=== PATIENT | male | born 1980 | race Caucasian/White ===

== ENCOUNTER 2018-04-01 14:36 | Inpatient (IN) | payer MEDICAID, OTHER ==
[~2018-04-01] VITALS: Ht 185.4 cm; Wt 74.0 kg
[2018-04-01] MEDS ORDERED: normal saline 1000ML IV soln IVB ONE (17:05)
[2018-04-01] MEDS ORDERED: vancomycin/NS 1 GM ADD-VANTAGE 250 ML IV ONE (17:05)
[2018-04-01 17:37] LABS: BASOPHILS % (AUTO) 0.4 % (0-1); EOSINOPHILS # (AUTO) 0.1 X10'3 (0-0.9); HEMATOCRIT 35.9 % (42.0-52.0); HEMOGLOBIN 12.8 g/dl (14.0-17.9); LYMPHOCYTES # (AUTO) 0.7 X10'3 (1.1-4.8); LYMPHOCYTES % (AUTO) 6.3 % (21-51); MEAN CORPUSCULAR HEMOGLOBIN 32.7 PG (27.0-31.0); MEAN CORPUSCULAR HGB CONC 35.7 % (33.0-36.5); MEAN CORPUSCULAR VOLUME 91.8 FL (78-98); MEAN PLATELET VOLUME 6.7 FL (7.4-10.4); MONOCYTES # (AUTO) 0.8 X10'3 (0-0.9); MONOCYTES % (AUTO) 7.2 % (2-12); NEUTROPHILS # (AUTO) 9.6 X10'3 (1.8-7.7); NEUTROPHILS % (AUTO) 85.1 % (42-75); PLATELET COUNT 318 X10'3 (140-440); RED BLOOD COUNT 3.91 X10'6 (4.70-6.10); RED CELL DISTRIBUTION WIDTH 13.3 % (11.5-14.5); WHITE BLOOD COUNT 11.2 X10'3 (4.5-11.0)
[2018-04-01 17:47] LABS: INR 0.9 INR; PARTIAL THROMBOPLASTIN TIME 28 SECONDS (22-32); PROTHROMBIN TIME 9.7 SECONDS (9.0-12.0)
[2018-04-01 17:55] LABS: ALANINE AMINOTRANSFERASE 26 U/L (12-78); ALBUMIN 3.6 G/DL (3.4-5.0); ALBUMIN/GLOBULIN RATIO 1.2 (1.1-1.5); ALKALINE PHOSPHATASE 95 IU/L (46-116); ANION GAP 9 (8-16); ASPARTATE AMINO TRANSFERASE 34 U/L (10-37); BILIRUBIN,TOTAL 1.2 MG/DL (0.1-1.0); BLOOD UREA NITROGEN 15 MG/DL (7-18); BUN/CREATININE RATIO 18.3 (5.4-32.0); CALCIUM 8.8 MG/DL (8.5-10.1); CHLORIDE 102 MMOL/L (99-107); CREATININE 0.82 MG/DL (0.60-1.10); GLUCOSE 99 MG/DL (70-104); MAGNESIUM 2.1 MG/DL (1.5-2.4); POTASSIUM 3.7 MMOL/L (3.5-5.1); SODIUM 138 MMOL/L (135-145); TOTAL CARBON DIOXIDE 26.9 MMOL/L (24-32); TOTAL PROTEIN 6.7 G/DL (6.4-8.2); eGFR > 90 ML/MIN
[2018-04-01 19:37] LABS: CLARITY,URINE CLEAR (Clear); COLOR,URINE YELLOW (Yellow); GLUCOSE, URINE NEGATIVE (Neg); KETONES,URINE NEGATIVE (Neg); LEUKOCYTE ESTERASE ,URINE NEGATIVE (Neg); NITRITES, URINE NEGATIVE (Neg); OCCULT BLOOD,URINE NEGATIVE (Neg); PH,URINE 5.5 (4.8-8.0); PROTEIN,URINE NEGATIVE (Neg); UROBILINOGEN,URINE 0.2 E.U/dL (0.2-1.0)
[2018-04-01 19:47] LABS: UA COLLECTION TYPE NON-SPECIFIED
[2018-04-01] MEDS ORDERED: BUPR200T2 PO (20:52)
[2018-04-01] MEDS ORDERED: acetaminophen 325mg tablet PO PRN (21:20)
[2018-04-01] MEDS ORDERED: ondansetron/PF 4mg/2ml inj IV PRN (21:20)
[2018-04-01] MEDS ORDERED: mag hydrox/Alum hydrox/simeth 30ml oral suspension PO PRN (21:20)
[2018-04-01] MEDS ORDERED: magnesium hydroxide 30ml (MOM) UD suspension PO PRN (21:20)
[2018-04-01] MEDS ORDERED: potassium Cl 20 mEq SR tablet PO PRN ×2 (21:20)
[2018-04-01] MEDS ORDERED: potassium Cl 40MEQ/NS 500ml 500 ML IV PRN ×2 (21:20)
[2018-04-01] MEDS ORDERED: magnesium 1gm/100ml D5W IVPB 100 ML IV PRN (21:20)
[2018-04-01] MEDS ORDERED: morphine 4 MG/ML inj SYRINge IV PRN ×2 (21:20)
[2018-04-01] MEDS ORDERED: magnesium 4gm in 100ml NS 100 ML IV PRN (21:20)
[2018-04-01] MEDS ORDERED: levoFLOXACIN-Levaquin 750MG/D5 150 ML IV ONE (21:20)
[2018-04-01 22:45] VITALS: BP 136/82
[2018-04-01] MEDS: normal saline 1000ml 1,000 ML IV SCH (22:55)
[2018-04-01] MEDS: HYDROcodone/acetaminophen 5mg/325mg tablet PO PRN (23:29)
[2018-04-02] MEDS: vancomycin/NS 1 GM ADD-VANTAGE 250 ML IV SCH ×3 (01:09→16:55)
[2018-04-02] MEDS: HYDROcodone/acetaminophen 5mg/325mg tablet PO PRN ×3 (04:35→16:55)
[2018-04-02 06:00] VITALS: BP 133/77
[2018-04-02 07:09] LABS: BASOPHILS % (AUTO) 0.2 % (0-1); EOSINOPHILS # (AUTO) 0.2 X10'3 (0-0.9); EOSINOPHILS % (AUTO) 1.6 % (0-6); HEMATOCRIT 35.5 % (42.0-52.0); HEMOGLOBIN 12.5 g/dl (14.0-17.9); LYMPHOCYTES # (AUTO) 1.2 X10'3 (1.1-4.8); LYMPHOCYTES % (AUTO) 11.9 % (21-51); MEAN CORPUSCULAR HEMOGLOBIN 32.5 PG (27.0-31.0); MEAN CORPUSCULAR HGB CONC 35.1 % (33.0-36.5); MEAN CORPUSCULAR VOLUME 92.4 FL (78-98); MEAN PLATELET VOLUME 6.9 FL (7.4-10.4); MONOCYTES # (AUTO) 0.9 X10'3 (0-0.9); MONOCYTES % (AUTO) 9.4 % (2-12); NEUTROPHILS # (AUTO) 7.7 X10'3 (1.8-7.7); NEUTROPHILS % (AUTO) 76.9 % (42-75); PLATELET COUNT 287 X10'3 (140-440); RED BLOOD COUNT 3.84 X10'6 (4.70-6.10); RED CELL DISTRIBUTION WIDTH 13.4 % (11.5-14.5)
[2018-04-02] MEDS: normal saline 1000ml 1,000 ML IV SCH (07:18)
[2018-04-02] MEDS: K and/or MAG REPLACEMENT MC SCH (08:00)
[2018-04-02 08:03] LABS: ALANINE AMINOTRANSFERASE 24 U/L (12-78); ALKALINE PHOSPHATASE 78 IU/L (46-116); ANION GAP 9 (8-16); ASPARTATE AMINO TRANSFERASE 22 U/L (10-37); BILIRUBIN,TOTAL 0.7 MG/DL (0.1-1.0); BLOOD UREA NITROGEN 11 MG/DL (7-18); BUN/CREATININE RATIO 11.5 (5.4-32.0); CALCIUM 8.3 MG/DL (8.5-10.1); CHLORIDE 106 MMOL/L (99-107); CREATININE 0.96 MG/DL (0.60-1.10); GLUCOSE 88 MG/DL (70-104); POTASSIUM 3.7 MMOL/L (3.5-5.1); SODIUM 140 MMOL/L (135-145); TOTAL CARBON DIOXIDE 24.9 MMOL/L (24-32); TOTAL PROTEIN 5.9 G/DL (6.4-8.2); eGFR 88 ML/MIN
[2018-04-02 10:00] VITALS: BP 147/87
[2018-04-02] MEDS: levoFLOXACIN 750MG TABLET PO SCH (11:01)
[2018-04-02] MEDS ORDERED: iohexol 300mg/ml 100ml inj. ONE (11:57)
[2018-04-02] MEDS ORDERED: VANCOMYCIN LEVEL IV NR (16:30)
[2018-04-02 17:23] LABS: URINE AMPHETAMINE SCREEN POSITIVE (Neg); URINE BARBITUATE SCREEN NEGATIVE (Neg); URINE BENZODIAZEPINES SCREEN NEGATIVE (Neg); URINE CANNABINOID SCREEN NEGATIVE (Neg); URINE COCAINE SCREEN NEGATIVE (Neg); URINE METHADONE SCREEN NEGATIVE (Neg); URINE OPIATE SCREEN POSITIVE (Neg); URINE PHENCYCLIDINE SCREEN NEGATIVE (Neg)
[2018-04-02 18:00] VITALS: BP 145/89
[2018-04-02] MEDS: buPROPion SR 100mg tab PO SCH (19:30)
[2018-04-02] MEDS: lactobacillus rhamnosus 10,000 MMU CELLS/CAPSULE PO SCH (19:31)
[2018-04-02 22:00] VITALS: BP 120/69
[2018-04-02] MEDS: HYDROcodone/acetaminophen 10/325mg tab PO PRN (22:38)
[2018-04-03] MEDS: vancomycin/NS 1 GM ADD-VANTAGE 250 ML IV SCH (01:00)
[2018-04-03] MEDS: HYDROcodone/acetaminophen 10/325mg tab PO PRN ×3 (05:14→19:31)
[2018-04-03 05:54] LABS: BASOPHILS % (AUTO) 0.3 % (0-1); EOSINOPHILS # (AUTO) 0.1 X10'3 (0-0.9); EOSINOPHILS % (AUTO) 0.7 % (0-6); HEMATOCRIT 36.9 % (42.0-52.0); HEMOGLOBIN 12.9 g/dl (14.0-17.9); LYMPHOCYTES # (AUTO) 1.3 X10'3 (1.1-4.8); LYMPHOCYTES % (AUTO) 14.3 % (21-51); MEAN CORPUSCULAR HEMOGLOBIN 32.8 PG (27.0-31.0); MEAN CORPUSCULAR HGB CONC 34.8 % (33.0-36.5); MEAN CORPUSCULAR VOLUME 94.3 FL (78-98); MEAN PLATELET VOLUME 7.2 FL (7.4-10.4); MONOCYTES # (AUTO) 0.8 X10'3 (0-0.9); MONOCYTES % (AUTO) 9.3 % (2-12); NEUTROPHILS # (AUTO) 6.6 X10'3 (1.8-7.7); NEUTROPHILS % (AUTO) 75.4 % (42-75); PLATELET COUNT 285 X10'3 (140-440); RED BLOOD COUNT 3.92 X10'6 (4.70-6.10); RED CELL DISTRIBUTION WIDTH 12.8 % (11.5-14.5); WHITE BLOOD COUNT 8.8 X10'3 (4.5-11.0)
[2018-04-03 06:50] LABS: ALANINE AMINOTRANSFERASE 20 U/L (12-78); ALKALINE PHOSPHATASE 75 IU/L (46-116); ANION GAP 8 (8-16); ASPARTATE AMINO TRANSFERASE 21 U/L (10-37); BILIRUBIN,TOTAL 0.6 MG/DL (0.1-1.0); BLOOD UREA NITROGEN 8 MG/DL (7-18); BUN/CREATININE RATIO 8.3 (5.4-32.0); CALCIUM 8.5 MG/DL (8.5-10.1); CHLORIDE 103 MMOL/L (99-107); CREATININE 0.96 MG/DL (0.60-1.10); GLUCOSE 92 MG/DL (70-104); MAGNESIUM 1.9 MG/DL (1.5-2.4); POTASSIUM 3.5 MMOL/L (3.5-5.1); SODIUM 140 MMOL/L (135-145); eGFR 88 ML/MIN
[2018-04-03 07:12] VITALS: BP 131/71
[2018-04-03] MEDS: buPROPion SR 100mg tab PO SCH ×2 (07:34→19:31)
[2018-04-03] MEDS: lactobacillus rhamnosus 10,000 MMU CELLS/CAPSULE PO SCH ×2 (07:34→19:30)
[2018-04-03] MEDS: K and/or MAG REPLACEMENT MC SCH (08:00)
[2018-04-03 10:00] VITALS: BP 120/56
[2018-04-03] MEDS: vancomycin inj 1,250 MG in normal saline 250ml IV soln 250 ML IV SCH ×2 (10:31→17:22)
[2018-04-03] MEDS: levoFLOXACIN 750MG TABLET PO SCH (10:33)
[2018-04-03 18:00] VITALS: BP 129/73
[2018-04-03 22:00] VITALS: BP 140/79
[2018-04-04] MEDS: vancomycin inj 1,250 MG in normal saline 250ml IV soln 250 ML IV SCH ×3 (00:43→16:54)
[2018-04-04] MEDS: HYDROcodone/acetaminophen 10/325mg tab PO PRN ×5 (00:51→21:19)
[2018-04-04 06:21] LABS: BASOPHILS % (AUTO) 0.3 % (0-1); EOSINOPHILS # (AUTO) 0.1 X10'3 (0-0.9); EOSINOPHILS % (AUTO) 1.8 % (0-6); HEMATOCRIT 36.5 % (42.0-52.0); HEMOGLOBIN 12.7 g/dl (14.0-17.9); LYMPHOCYTES # (AUTO) 1.2 X10'3 (1.1-4.8); LYMPHOCYTES % (AUTO) 17.6 % (21-51); MEAN CORPUSCULAR HEMOGLOBIN 32.7 PG (27.0-31.0); MEAN CORPUSCULAR HGB CONC 34.9 % (33.0-36.5); MEAN CORPUSCULAR VOLUME 93.7 FL (78-98); MEAN PLATELET VOLUME 7.2 FL (7.4-10.4); MONOCYTES # (AUTO) 0.7 X10'3 (0-0.9); NEUTROPHILS # (AUTO) 4.9 X10'3 (1.8-7.7); NEUTROPHILS % (AUTO) 70.3 % (42-75); PLATELET COUNT 285 X10'3 (140-440); RED BLOOD COUNT 3.89 X10'6 (4.70-6.10); RED CELL DISTRIBUTION WIDTH 12.6 % (11.5-14.5); WHITE BLOOD COUNT 6.9 X10'3 (4.5-11.0)
[2018-04-04 06:33] LABS: ALANINE AMINOTRANSFERASE 24 U/L (12-78); ALBUMIN 2.8 G/DL (3.4-5.0); ALBUMIN/GLOBULIN RATIO 0.9 (1.1-1.5); ALKALINE PHOSPHATASE 63 IU/L (46-116); ANION GAP 7 (8-16); ASPARTATE AMINO TRANSFERASE 16 U/L (10-37); BILIRUBIN,TOTAL 0.4 MG/DL (0.1-1.0); BLOOD UREA NITROGEN 13 MG/DL (7-18); CALCIUM 8.6 MG/DL (8.5-10.1); CHLORIDE 103 MMOL/L (99-107); CREATININE 0.93 MG/DL (0.60-1.10); GLUCOSE 82 MG/DL (70-104); MAGNESIUM 2.1 MG/DL (1.5-2.4); POTASSIUM 3.6 MMOL/L (3.5-5.1); SODIUM 139 MMOL/L (135-145); TOTAL CARBON DIOXIDE 29.4 MMOL/L (24-32); eGFR > 90 ML/MIN
[2018-04-04 07:09] VITALS: BP 116/63
[2018-04-04] MEDS: K and/or MAG REPLACEMENT MC SCH (08:00)
[2018-04-04] MEDS: buPROPion SR 100mg tab PO SCH ×2 (08:20→19:04)
[2018-04-04] MEDS: lactobacillus rhamnosus 10,000 MMU CELLS/CAPSULE PO SCH ×2 (08:20→19:04)
[2018-04-04] MEDS ORDERED: VANCOMYCIN LEVEL IV ONE (08:30)
[2018-04-04 11:05] VITALS: BP 121/68
[2018-04-04] MEDS: levoFLOXACIN 750MG TABLET PO SCH (11:51)
[2018-04-04 18:00] VITALS: BP 136/86
[2018-04-04 22:00] VITALS: BP 120/64
[2018-04-05] MEDS: HYDROcodone/acetaminophen 10/325mg tab PO PRN ×3 (01:12→19:34)
[2018-04-05] MEDS: vancomycin inj 1,250 MG in normal saline 250ml IV soln 250 ML IV SCH ×3 (01:13→17:58)
[2018-04-05 06:07] LABS: BASOPHILS # (AUTO) 0.1 X10'3 (0-0.2); EOSINOPHILS # (AUTO) 0.2 X10'3 (0-0.9); EOSINOPHILS % (AUTO) 3.2 % (0-6); HEMATOCRIT 36.9 % (42.0-52.0); HEMOGLOBIN 12.9 g/dl (14.0-17.9); LYMPHOCYTES # (AUTO) 1.3 X10'3 (1.1-4.8); LYMPHOCYTES % (AUTO) 24.6 % (21-51); MEAN CORPUSCULAR HEMOGLOBIN 32.5 PG (27.0-31.0); MEAN CORPUSCULAR HGB CONC 35.1 % (33.0-36.5); MEAN CORPUSCULAR VOLUME 92.7 FL (78-98); MEAN PLATELET VOLUME 6.7 FL (7.4-10.4); MONOCYTES # (AUTO) 0.5 X10'3 (0-0.9); MONOCYTES % (AUTO) 10.7 % (2-12); NEUTROPHILS # (AUTO) 3.1 X10'3 (1.8-7.7); NEUTROPHILS % (AUTO) 60.5 % (42-75); PLATELET COUNT 315 X10'3 (140-440); RED BLOOD COUNT 3.97 X10'6 (4.70-6.10); RED CELL DISTRIBUTION WIDTH 13.5 % (11.5-14.5); WHITE BLOOD COUNT 5.1 X10'3 (4.5-11.0)
[2018-04-05 06:20] LABS: ALANINE AMINOTRANSFERASE 28 U/L (12-78); ALBUMIN 2.9 G/DL (3.4-5.0); ALBUMIN/GLOBULIN RATIO 0.9 (1.1-1.5); ALKALINE PHOSPHATASE 63 IU/L (46-116); ANION GAP 4 (8-16); ASPARTATE AMINO TRANSFERASE 23 U/L (10-37); BILIRUBIN,TOTAL 0.3 MG/DL (0.1-1.0); BLOOD UREA NITROGEN 16 MG/DL (7-18); BUN/CREATININE RATIO 15.4 (5.4-32.0); CALCIUM 8.7 MG/DL (8.5-10.1); CHLORIDE 103 MMOL/L (99-107); CREATININE 1.04 MG/DL (0.60-1.10); GLUCOSE 96 MG/DL (70-104); MAGNESIUM 2.1 MG/DL (1.5-2.4); SODIUM 138 MMOL/L (135-145); TOTAL CARBON DIOXIDE 31.1 MMOL/L (24-32); TOTAL PROTEIN 6.3 G/DL (6.4-8.2); eGFR 80 ML/MIN
[2018-04-05 06:21] LABS: POTASSIUM 4.1 MMOL/L (3.5-5.1)
[2018-04-05 06:45] VITALS: BP 103/58
[2018-04-05] MEDS: K and/or MAG REPLACEMENT MC SCH (07:16)
[2018-04-05] MEDS: lactobacillus rhamnosus 10,000 MMU CELLS/CAPSULE PO SCH ×2 (07:16→19:31)
[2018-04-05] MEDS: buPROPion SR 100mg tab PO SCH ×2 (07:16→19:32)
[2018-04-05] MEDS: levoFLOXACIN 750MG TABLET PO SCH (10:29)
[2018-04-05 12:30] VITALS: BP 120/69
[2018-04-05 18:00] VITALS: BP 120/61
[2018-04-05 22:00] VITALS: BP 114/59
[2018-04-06] MEDS: vancomycin inj 1,250 MG in normal saline 250ml IV soln 250 ML IV SCH ×3 (00:55→20:52)
[2018-04-06 06:00] VITALS: BP 111/63
[2018-04-06 06:21] LABS: BASOPHILS % (AUTO) 0.7 % (0-1); EOSINOPHILS # (AUTO) 0.2 X10'3 (0-0.9); EOSINOPHILS % (AUTO) 3.3 % (0-6); HEMATOCRIT 39.4 % (42.0-52.0); HEMOGLOBIN 13.7 g/dl (14.0-17.9); LYMPHOCYTES # (AUTO) 1.2 X10'3 (1.1-4.8); LYMPHOCYTES % (AUTO) 24.3 % (21-51); MEAN CORPUSCULAR HEMOGLOBIN 32.1 PG (27.0-31.0); MEAN CORPUSCULAR HGB CONC 34.8 % (33.0-36.5); MEAN CORPUSCULAR VOLUME 92.4 FL (78-98); MEAN PLATELET VOLUME 6.6 FL (7.4-10.4); MONOCYTES # (AUTO) 0.6 X10'3 (0-0.9); MONOCYTES % (AUTO) 10.8 % (2-12); NEUTROPHILS # (AUTO) 3.1 X10'3 (1.8-7.7); NEUTROPHILS % (AUTO) 60.9 % (42-75); PLATELET COUNT 374 X10'3 (140-440); RED BLOOD COUNT 4.26 X10'6 (4.70-6.10); RED CELL DISTRIBUTION WIDTH 13.5 % (11.5-14.5); WHITE BLOOD COUNT 5.1 X10'3 (4.5-11.0)
[2018-04-06 06:46] LABS: ANION GAP 4 (8-16); BILIRUBIN,TOTAL 0.3 MG/DL (0.1-1.0); BLOOD UREA NITROGEN 24 MG/DL (7-18); BUN/CREATININE RATIO 21.2 (5.4-32.0); CALCIUM 9.2 MG/DL (8.5-10.1); CHLORIDE 101 MMOL/L (99-107); CREATININE 1.13 MG/DL (0.60-1.10); GLUCOSE 87 MG/DL (70-104); MAGNESIUM 2.1 MG/DL (1.5-2.4); POTASSIUM 4.2 MMOL/L (3.5-5.1); SODIUM 137 MMOL/L (135-145); TOTAL CARBON DIOXIDE 31.8 MMOL/L (24-32); eGFR 73 ML/MIN
[2018-04-06 06:47] LABS: ALANINE AMINOTRANSFERASE 39 U/L (12-78); ALBUMIN 3.1 G/DL (3.4-5.0); ALBUMIN/GLOBULIN RATIO 0.9 (1.1-1.5); ALKALINE PHOSPHATASE 66 IU/L (46-116); ASPARTATE AMINO TRANSFERASE 36 U/L (10-37); TOTAL PROTEIN 6.6 G/DL (6.4-8.2)
[2018-04-06] MEDS: K and/or MAG REPLACEMENT MC SCH (07:36)
[2018-04-06] MEDS: lactobacillus rhamnosus 10,000 MMU CELLS/CAPSULE PO SCH ×2 (07:37→19:18)
[2018-04-06] MEDS: HYDROcodone/acetaminophen 10/325mg tab PO PRN ×3 (07:37→23:10)
[2018-04-06] MEDS: buPROPion SR 100mg tab PO SCH ×2 (07:37→19:18)
[2018-04-06 10:00] VITALS: BP 116/62
[2018-04-06] MEDS: levoFLOXACIN 750MG TABLET PO SCH (11:29)
[2018-04-06 18:00] VITALS: BP 119/80
[2018-04-06 22:00] VITALS: BP 131/69
[2018-04-07] MEDS: vancomycin inj 1,250 MG in normal saline 250ml IV soln 250 ML IV SCH (04:57)
[2018-04-07 07:01] VITALS: BP 106/56
[2018-04-07] MEDS: K and/or MAG REPLACEMENT MC SCH (07:22)
[2018-04-07] MEDS: lactobacillus rhamnosus 10,000 MMU CELLS/CAPSULE PO SCH (07:46)
[2018-04-07] MEDS: buPROPion SR 100mg tab PO SCH (07:46)
[2018-04-07 10:03] VITALS: BP_SYST 110; BP_SYST 119; BP_DIAS 56; BP_DIAS 77
[2018-04-07] MEDS: levoFLOXACIN 750MG TABLET PO SCH (10:47)
[2018-04-07] MEDS ORDERED: vancomycin/NS 1 GM ADD-VANTAGE 250 ML IV SCH (13:00)
[2018-04-07] MEDS: HYDROcodone/acetaminophen 10/325mg tab PO PRN (13:20)
[2018-04-07] MEDS ORDERED: LEVO500T2 PO (13:42)
[2018-04-08] MEDS ORDERED: VANCOMYCIN LEVEL IV ONE (12:30)
== END 2018-04-07 21:00 | disposition home or self-care (01) | DRG 383 ==
LOC: ER 14:37 → ED HOLD 21:18 → ORTHO 4S 22:35
PROVIDERS: ADMIT Family Medicine; ATTEND Internal Medicine
PROC: BP2U1ZZ Computerized Tomography (CT Scan) of Left Upper Extremity using Low Osmolar Contrast (ICD-10-PCS; 2018-04-02)
PROC: 0H9GXZZ Drainage of Left Hand Skin, External Approach (ICD-10-PCS; principal; 2018-04-04)
DX: L03.114 Cellulitis of left upper limb (principal); R65.10 Systemic inflammatory response syndrome (SIRS) of non-infectious origin without acute organ dysfunction; F10.10 Alcohol abuse, uncomplicated; F15.10 Other stimulant abuse, uncomplicated; L02.512 Cutaneous abscess of left hand; F32.9 Major depressive disorder, single episode, unspecified; F41.9 Anxiety disorder, unspecified; F12.90 Cannabis use, unspecified, uncomplicated; F19.10 Other psychoactive substance abuse, uncomplicated; Z79.899 Other long term (current) drug therapy; Z87.891 Personal history of nicotine dependence; Z83.3 Family history of diabetes mellitus; Z80.9 Family history of malignant neoplasm, unspecified; Z71.6 Tobacco abuse counseling
CPT/HCPCS: 36415; 71045; 73201; 80053; 80202; 80305; 81003; 83605; 83735; 84145; 85025; 85610; 85730; 87040; 87070; 87077; 87186; 93005; 93306; 96365; 96366; 99285; A4649; A6209; A6212; A6222; A6258; A6446; A6449; J1956; J2270; J3370; J7030; Q9967